=== PATIENT | male | born 1990 | race Two or more races ===

== ENCOUNTER 2021-01-29 16:15 | Emergency (ER) | payer OTHER ==
[~2021-01-29] VITALS: Ht 188 cm; Wt 65.8 kg
[2021-01-29] MEDS ORDERED: LANTUS SOL100 UNIT/1 SQ (16:45)
[2021-01-29] MEDS ORDERED: METFORMIN HCL1000 M2 PO (16:45)
[2021-01-29] MEDS ORDERED: ZESTRIL5 MG PO (16:46)
== END 2021-01-29 19:28 | disposition home or self-care (01) ==
LOC: ER 16:15
DX: M54.5 Low back pain (principal); E11.9 Type 2 diabetes mellitus without complications